=== PATIENT | female | born 1960 | race Caucasian/White ===

== ENCOUNTER 2020-04-09 01:16 | Outpatient (CLI) | payer OTHER, SELFPAY ==
[2020-04-09 09:51] LABS: Abs Immature Grans 0.01 k/cumm (0.0-0.09); Absolute Basophil Count 0.04 k/cumm (0.0-0.2); Absolute Eosinophil Count 0.11 k/cumm (0.0-0.7); Absolute Lymphocyte Count 1.63 k/cumm (1.2-3.4); Absolute Monocyte Count 0.43 k/cumm (0.11-0.7); Absolute Neutrophil Count 2.65 k/cumm (1.2-6.7); Basophils % 0.8; Eosinophils % 2.3; HCT 41.1 % (36.0-46.0); HGB 13.5 g/dL (12.0-15.5); Immature Grans % 0.2 %; Lymphocytes % 33.5; Mean Corp. HGB Concentration 32.8 g/dL (32.0-36.0); Mean Corpuscular Hemoglobin 28.3 pg (27.0-33.0); Mean Corpuscular Volume 86.2 fL (80-95); Mean Platelet Volume 10.3 fL (8.0-11.0); Monocytes % 8.8; Neutrophils % 54.4; Platelet Count 302 x1000/uL (130-400); RBC 4.77 m/cumm (4.00-5.20); RBC Distribution Width 12.5 % (11.7-14.6); White Blood Cell Count 4.87 k/cumm (4.4-10.8)
[2020-04-09 10:34] LABS: ALT 26 U/L (14-59); AST 16 U/L (15-37); Alkaline Phosphatase 71 U/L (46-116); Anion Gap 12.1 mmol/L (3-11); BUN 15 mg/dL (7-18); Bilirubin, Total 0.6 mg/dL (0.2-1.0); CO2 22.9 mmol/L (21.0-32.0); Calcium 8.8 mg/dL (8.5-10.1); Chloride 103 mmol/L (98-107); Estimated GFR 56.75 (mL/min/1.73m2); Glucose 103 mg/dL (74-106); Potassium 4.1 mmol/L (3.5-5.1); Sodium 138 mmol/L (136-145)
[2020-04-10 10:22] LABS: C3 Complement 120 mg/dL (81-157); C4 Complement 30 mg/dL (13-39)
[2020-04-10 15:02] LABS: ANA Interpretation Negative (Negative)
== END 2020-04-09 01:36 ==
PROVIDERS: PCP Student in an Organized Health Care Education/Training Program
DX: M06.4 Inflammatory polyarthropathy (principal); Z79.899 Other long term (current) drug therapy; M32.10 Systemic lupus erythematosus, organ or system involvement unspecified
CPT/HCPCS: 36415; 80053; 85025; 86038; 86160

== ENCOUNTER 2020-08-08 02:18 | Outpatient (CLI) | payer OTHER, SELFPAY ==
--- NOTE | 2020-08-08 10:22 | DI.MAMMO_ITS ---
EXAM: MG MAMMO SCREENING CLINICAL HISTORY: screening,z12.39 TECHNIQUE: Bilateral full field digital CC and MLO mammographic images were obtained with 3D tomosyn thesis and utilizing computer aided detection (CAD). COMPARISON: None. FINDINGS: Masses/Architectural Distortion: None seen. The patient is status post bilateral breast reductions. Microcalcifications: No suspicious pleomorphic-type are seen. Skin Thickening/Nipple Retraction: None. IMPRESSION: 1. No significant interval change with no specific features of malignancy noted. 2. Unless there is more urgent need, screening mammography is recommended, as per [employer] guidelines. BI-RADS Category 1 - Negative Breast Density - Category C - Heterogeneously dense The mammogram demonstrates the patient's breast tissue is dense. Dense breast tissue is very common a nd is not abnormal but dense breast tissue can make it harder to find cancer on a mammogram. Also, de nse breast tissue may increase their breast cancer risk. This information about the result of the [facility] the [facility] mogram report was provided to the patient to raise their awareness. Use this report when you speak wi th the patient about their risks for breast cancer, which includes their family history. At that time , you may recommend for more screening tests (Ultrasound or MRI) as they might be useful based on the ir risk. A negative radiographic report should not delay biopsy if a dominant or clinically suspicious mass is present. Up to ten percent of cancers are not identified on mammography. A negative report may reinforce clinical impression. Adenosis and dense breasts may obscure an underlying neoplasm. False positive reports average 6 to 10%. Patient will receive a letter notifying them of these results.
== END 2020-08-08 02:38 ==
PROVIDERS: PCP Student in an Organized Health Care Education/Training Program; Visit Provider Nurse Practitioner Women's Health
DX: Z12.31 Encounter for screening mammogram for malignant neoplasm of breast (principal)
CPT/HCPCS: 77063; 77067

== ENCOUNTER 2020-12-13 02:23 | Outpatient (CLI) | payer OTHER, SELFPAY ==
[2020-12-13 13:15] LABS: Abs Immature Grans 0.02 10^3/uL (0.0-0.06); Absolute Basophil Count 0.08 10^3/uL (0.0-0.2); Absolute Eosinophil Count 0.22 10^3/uL (0.0-0.7); Absolute Lymphocyte Count 1.55 10^3/uL (1.2-3.4); Absolute Neutrophil Count 3.73 10^3/uL (1.2-6.7); Basophils % 1.3; Eosinophils % 3.6; HCT 40.7 % (36.0-46.0); HGB 13.4 g/dL (11.2-15.7); Immature Grans % 0.3; Lymphocytes % 25.4; MCH 28.8 pg (27.0-33.0); MCHC 32.9 % (32.0-36.0); MCV 87.3 fL (80-95); MPV 10.2 fL (8.0-11.0); Monocytes % 8.2; Neutrophils % 61.2; Nucleated RBC 0 %; Platelet Count 307 10^3/uL (130-400); RBC 4.66 10^6/uL (3.93-5.22); RDW 11.8 % (11.7-14.6); RDW-SD 37.6 fL
[2020-12-13 13:58] LABS: ALT 29 U/L (14-59); AST 15 U/L (15-37); Estimated GFR 56.56 (mL/min/1.73m2)
[2020-12-16 09:44] LABS: C3 Complement 118 mg/dL (81-157); C4 Complement 28 mg/dL (13-39)
[2020-12-17 14:43] LABS: ANA Interpretation Negative (Negative)
[2020-12-17 15:08] LABS: RNP Ab, IgG 1.5 Units (<20.0); SS-A Antibody 1.2 Units (<20.0); SS-B (La) Ab, IgG 1.4 Units (<20.0); Sm (Smith) Ab, IgG 1.8 Units (<20.0)
== END 2020-12-13 02:24 | disposition home or self-care (01) ==
LOC: LBO 02:23
PROVIDERS: PCP Student in an Organized Health Care Education/Training Program; Visit Provider Internal Medicine Rheumatology
DX: Z79.899 Other long term (current) drug therapy (principal); L93.0 Discoid lupus erythematosus
CPT/HCPCS: 36415; 82565; 84450; 84460; 85025; 86038; 86160; 86235

== ENCOUNTER 2021-03-06 10:24 | Outpatient (CLI) | payer OTHER, SELFPAY ==
--- NOTE | 2021-03-06 10:15 | RT.EKG_ITS ---
APPROVED REPORT Exam: Resting ECG Reason for Exam: Long-term current use of stimulant Patient Location: O HR:71 bpm ECG Measurements Heart Rate 71 AXIS IA 157 P 11 QRSd 86 QRS 13 QT 394 T 7 QTc 428 Conclusion Sinus rhythm...normal P axis, V-rate 60- 99
== END 2021-03-06 10:25 | disposition home or self-care (01) ==
LOC: DI.KIM 10:35
PROVIDERS: PCP Student in an Organized Health Care Education/Training Program; Visit Provider Student in an Organized Health Care Education/Training Program
DX: F90.2 Attention-deficit hyperactivity disorder, combined type (principal); Z79.899 Other long term (current) drug therapy; Z51.81 Encounter for therapeutic drug level monitoring
CPT/HCPCS: 93010

== ENCOUNTER 2021-06-30 08:50 | Outpatient (REF) | payer OTHER, SELFPAY ==
--- NOTE | 2021-06-30 08:30 | PAPFT_PTH ---
PATIENT: Sherri Hernandez LOC: [facility] U#:[id number] AGE/SX: 61/F ROOM: RE06/30/[address]: KHOI Bullock : 1960 BED: DIS: 06/30/2021 SPEC #: [id number] RECD: 06/30/21 12:55 STATUS: RICKIE RETala #: [id number] JANAK: 06/30/21 08:[address]: Ursula Palomares DEPT: [facility] Cytology RECD BY: Ariadna Gallardo ENTERED: 06/30/21 12:55 SP TYPE: PAPFT OTHR DR: Amber Davidson, Tissues: 1 - CX/ENDOCX FOR PAP SMEARS Procedures: PAP THIN PREP/[facility] Screening HPV DNA PROBE Comments: [id number]
== END 2021-06-30 08:51 | disposition home or self-care (01) ==
LOC: LBN 08:50
PROVIDERS: PCP Student in an Organized Health Care Education/Training Program; Visit Provider Nurse Practitioner Family
DX: Z12.4 Encounter for screening for malignant neoplasm of cervix (principal); Z11.51 Encounter for screening for human papillomavirus (HPV)
CPT/HCPCS: 88142; 87624

== ENCOUNTER 2021-07-04 02:39 | Outpatient (CLI) | payer OTHER, SELFPAY ==
[2021-07-04 09:40] LABS: HCT 39.4 % (36.0-46.0); HGB 12.8 g/dL (11.2-15.7); MCH 28.3 pg (27.0-33.0); MCHC 32.5 % (32.0-36.0); MCV 87.2 fL (80-95); MPV 9.9 fL (8.0-11.0); Platelet Count 292 10^3/uL (130-400); RBC 4.52 10^6/uL (3.93-5.22); RDW 12.2 % (11.7-14.6); RDW-SD 39.3 fL
[2021-07-04 11:19] LABS: ALT 40 U/L (14-59); AST 13 U/L (15-37); Albumin 3.9 g/dL (3.4-5.0); Alkaline Phosphatase 74 U/L (46-116); BUN 17 mg/dL (7-18); Bilirubin, Total 0.6 mg/dL (0.2-1.0); CREATININE 0.9 mg/dL (0.55-1.02); Calcium 9.1 mg/dL (8.5-10.1); Calculated LDL 112 mg/dL (<100); Chloride 106 mmol/L (98-107); Cholesterol 214 mg/dL (<200); Glucose 95 mg/dL (74-106); HDL Cholesterol 93 mg/dL (40-60); Potassium 4.4 mmol/L (3.5-5.1); Sodium 143 mmol/L (136-145); Total Protein 6.8 g/dL (6.4-8.2); Triglyceride 45 mg/dL (<150)
== END 2021-07-04 02:40 | disposition home or self-care (01) ==
LOC: LBO 02:39
PROVIDERS: PCP Student in an Organized Health Care Education/Training Program; Visit Provider Student in an Organized Health Care Education/Training Program
DX: R03.0 Elevated blood-pressure reading, without diagnosis of hypertension; K76.9 Liver disease, unspecified; Z13.220 Encounter for screening for lipoid disorders; L93.0 Discoid lupus erythematosus; Z86.2 Personal history of diseases of the blood and blood-forming organs and certain disorders involving the immune mechanism; Z83.2 Family history of diseases of the blood and blood-forming organs and certain disorders involving the immune mechanism
CPT/HCPCS: 36415; 80053; 80061; 85027

== ENCOUNTER 2021-07-18 00:32 | Outpatient (CLI) | payer OTHER, SELFPAY ==
--- NOTE | 2021-07-18 07:15 | DI.RAD_ITS ---
Exam(s) XR CHEST 2V PA LATERAL EXAM: XR CHEST 2V PA LATERAL CLINICAL HISTORY: recent bronchitis, SOB,ASTHMA,J45.909 TECHNIQUE: 2D digital imaging was performed of the chest. Two images were obtained. PA and lateral views were obtained. COMPARISON: No exams were available for comparison FINDINGS: MEDIASTINUM: Normal. HEART: Normal. PULMONARY VASCULATURE: Normal. LUNGS: Clear. PLEURAL SPACE: No pleural effusion or pneumothorax. BONE:Within normal limits for the patient's age. OTHER FINDINGS:Normal. IMPRESSION: No acute pulmonary findings. DATA REPOSITORY: RADIATION DOSE DELIVERED:
[2021-07-18] MEDS: Albuterol HFA 18 GM 200 PUFF INH IH (09:42)
[2021-07-18] MEDS: Inhaler, Assist Device 1 EACH MC (09:43)
--- NOTE | 2021-07-22 15:37 | W.PFT ---
Date of service: 07/18/21 Time of Service: 08:09 Pulmonary Function Test Result Requesting Provider Marta Indications: Dyspnea on Exertion Interpretation Spirometry: There is no airflow limitation. There is no significant bronchodilator effect. There is inspiratory loop blunting on her prebronchodilator volume loop. Lung Volumes: Lung volumes are normal. Diffusion Capacity: Diffusion capacity is normal Airway Pressure: Airways resistance is normal. Impression Normal pulmonary function test however there is an inspiratory loop blunting on the prebronchodilator loop that could represent possible vocal cord dysfunction. Clinical Correlation therefore is recommended.
== END 2021-07-18 00:33 | disposition home or self-care (01) ==
LOC: RT 00:32
PROVIDERS: PCP Student in an Organized Health Care Education/Training Program; Visit Provider Student in an Organized Health Care Education/Training Program
DX: R06.09 Other forms of dyspnea (principal)
CPT/HCPCS: 94060; 94726; 94729; 71046

== ENCOUNTER 2021-08-11 00:31 | Outpatient (CLI) | payer OTHER, SELFPAY ==
--- NOTE | 2021-08-11 09:26 | DI.MAMMO_ITS ---
Exam(s) MAMMO SCREENING EXAM: MAMMO SCREENING CLINICAL HISTORY: screening,z12.39. TECHNIQUE: Bilateral full field digital CC and MLO mammographic images were obtained with 3D tomosyn thesis and utilizing computer aided detection (CAD). COMPARISON: Prior mammograms dating back to 2016, the most recent being July 2020. FINDINGS: Fibroglandular tissue pattern is again noted be moderately dense, this decreasing the sensitivity anabel mogram for finding hidden underlying lesions. There are no new obvious spiculated masses. Benign microcalcifications are again noted bilaterally. Posteriorly in the right breast on the MLO view there is a group of microcalcifications which has inc reased when compared to prior studies. Spot compression view recommended. There is no significant architectural distortion nor skin thickening-retraction. IMPRESSION: Dense bilateral fibroglandular tissue. No radiographic evidence of malignancy in left breast. Micro calcification group posteriorly in the right breast which require 2D spot Mag views. BI-RADS Category 0 - Assessment Incomplete: Need additional imaging evaluation Breast Density - Category C - Heterogeneously dense Breast density Category C or D implies that the patient has dense breast tissue. Dense breast tissue can make it harder to find cancer on a mammogram. Dense breast tissue is also associated with an incr eased risk of breast cancer. This information about the result of the mammogram report was provided to the patient to raise their awareness. Use this report when you speak with the patient about their risks for breast cancer, which includes their family history. At that time, you may recommend additional screening tests (Ultrasoun d or MRI) as these tests may add significant information. A negative radiographic report should not delay biopsy if a dominant or clinically suspicious mass is present. Up to ten percent of cancers are not identified on mammography. A negative report may reinforce clinical impression. Adenosis and dense breasts may obscure an underlying neoplasm. False positive reports average 6 to 10%. Patient will receive a letter notifying them of these results.
== END 2021-08-11 00:51 ==
PROVIDERS: PCP Student in an Organized Health Care Education/Training Program; Visit Provider Student in an Organized Health Care Education/Training Program
DX: Z12.31 Encounter for screening mammogram for malignant neoplasm of breast (principal); R92.8 Other abnormal and inconclusive findings on diagnostic imaging of breast
CPT/HCPCS: 77063; 77067

== ENCOUNTER 2021-08-25 00:31 | Outpatient (CLI) | payer OTHER, SELFPAY ==
--- NOTE | 2021-08-25 11:37 | DI.MAMMO_ITS ---
Exam(s) MAMMO SCREEN CALL BACK UNI EXAM: MAMMO SCREEN CALL BACK UNI CLINICAL HISTORY: INCREASED MICROCALCIFICATIONS RT BREAST, 2D SPOT MAG VIEWS. TECHNIQUE: Craniocaudal and mediolateral oblique spot magnification views of the right breast with C omputer Aided Diagnosis. COMPARISON: Priors available for comparison. FINDINGS: Mammography/Tomosynthesis: Masses/Architectural Distortion: None seen. Microcalcifictions: There is again shown a cluster of calcifications in the posterior central right b reast which have shown increase in number compared to the prior examination. No associated mass is s een. Skin Thickening/Nipple Retraction: None. IMPRESSION: 1. Interval increase in number of a cluster of calcifications in the posterior central right breast. 2. Biopsy is recommended for further evaluation. 3. The findings were discussed with the patient and the patient's primary care team on the date of examination. BI-RADS Category 4 - Suspicious Abnormality: Biopsy should be considered Breast Density - Category C - Heterogeneously dense Breast density Category C or D implies that the patient has dense breast tissue. Dense breast tissue can make it harder to find cancer on a mammogram. Dense breast tissue is also associated with an incr eased risk of breast cancer. This information about the result of the mammogram report was provided to the patient to raise their awareness. Use this report when you speak with the patient about their risks for breast cancer, which includes their family history. At that time, you may recommend additional screening tests (Ultrasoun d or MRI) as these tests may add significant information. A negative radiographic report should not delay biopsy if a dominant or clinically suspicious mass is present. Up to ten percent of cancers are not identified on mammography. A negative report may reinforce clinical impression. Adenosis and dense breasts may obscure an underlying neoplasm. False positive reports average 6 to 10%. Patient will receive a letter notifying them of these results.
== END 2021-08-25 00:51 ==
PROVIDERS: PCP Student in an Organized Health Care Education/Training Program; Visit Provider Student in an Organized Health Care Education/Training Program
DX: R92.8 Other abnormal and inconclusive findings on diagnostic imaging of breast (principal)
CPT/HCPCS: 77063; 77067

== ENCOUNTER 2021-11-11 04:26 | Outpatient (CLI) | payer OTHER, SELFPAY ==
[2021-11-11 13:29] LABS: Abs Immature Grans 0.04 10^3/uL (0.0-0.06); Absolute Eosinophil Count 0.43 10^3/uL (0.0-0.7); Absolute Lymphocyte Count 1.52 10^3/uL (1.2-3.4); Absolute Monocyte Count 0.77 10^3/uL (0.1-0.8); Absolute Neutrophil Count 5.64 10^3/uL (1.2-6.7); Basophils % 1.2; Eosinophils % 5.1; HCT 38.1 % (36.0-46.0); HGB 12.2 g/dL (11.2-15.7); Immature Grans % 0.5; Lymphocytes % 17.9; MCH 28.4 pg (27.0-33.0); MCV 88.8 fL (80-95); MPV 10.2 fL (8.0-11.0); Monocytes % 9.1; Neutrophils % 66.2; Nucleated RBC 0 %; Platelet Count 337 10^3/uL (130-400); RBC 4.29 10^6/uL (3.93-5.22); RDW 12.3 % (11.7-14.6); RDW-SD 39.9 fL
[2021-11-11 14:14] LABS: ALT 38 U/L (14-59); AST 17 U/L (15-37); Albumin 3.6 g/dL (3.4-5.0); Alkaline Phosphatase 69 U/L (46-116); Anion Gap 10.1 mmol/L (3-11); BUN 23 mg/dL (7-18); Bilirubin, Total 0.5 mg/dL (0.2-1.0); CO2 25.9 mmol/L (21.0-32.0); CREATININE 1.1 mg/dL (0.55-1.02); Chloride 102 mmol/L (98-107); Glucose 89 mg/dL (74-106); Sodium 138 mmol/L (136-145); Total Protein 6.5 g/dL (6.4-8.2)
== END 2021-11-11 04:27 | disposition home or self-care (01) ==
PROVIDERS: PCP Student in an Organized Health Care Education/Training Program; Visit Provider Internal Medicine Rheumatology
DX: Z79.899 Other long term (current) drug therapy (principal)
CPT/HCPCS: 36415; 80053; 85025

== ENCOUNTER 2021-12-03 02:38 | Outpatient (CLI) | payer OTHER, SELFPAY ==
[2021-12-03 11:20] LABS: Abs Immature Grans 0.03 10^3/uL (0.0-0.06); Absolute Eosinophil Count 0.25 10^3/uL (0.0-0.7); Absolute Lymphocyte Count 1.49 10^3/uL (1.2-3.4); Absolute Monocyte Count 0.83 10^3/uL (0.1-0.8); Absolute Neutrophil Count 4.63 10^3/uL (1.2-6.7); Basophils % 1.4; Eosinophils % 3.4; HCT 37.7 % (36.0-46.0); HGB 11.9 g/dL (11.2-15.7); Immature Grans % 0.4; Lymphocytes % 20.3; MCH 28.6 pg (27.0-33.0); MCHC 31.6 % (32.0-36.0); MCV 90.6 fL (80-95); MPV 9.9 fL (8.0-11.0); Monocytes % 11.3; Neutrophils % 63.2; Nucleated RBC 0 %; Platelet Count 298 10^3/uL (130-400); RBC 4.16 10^6/uL (3.93-5.22); RDW 12.7 % (11.7-14.6); RDW-SD 41.7 fL; WBC 7.33 10^3/uL (4.4-10.8)
[2021-12-03 11:48] LABS: ALT 36 U/L (14-59); AST 21 U/L (15-37); Albumin 3.5 g/dL (3.4-5.0); Alkaline Phosphatase 68 U/L (46-116); Anion Gap 7.7 mmol/L (3-11); BUN 22 mg/dL (7-18); Bilirubin, Total 0.7 mg/dL (0.2-1.0); CO2 27.3 mmol/L (21.0-32.0); Chloride 104 mmol/L (98-107); Estimated GFR 56.37 (mL/min/1.73m2); Glucose 95 mg/dL (74-106); Potassium 4.2 mmol/L (3.5-5.1); Sodium 139 mmol/L (136-145); Total Protein 6.9 g/dL (6.4-8.2)
== END 2021-12-03 02:39 | disposition home or self-care (01) ==
LOC: LBO 02:38
PROVIDERS: PCP Student in an Organized Health Care Education/Training Program; Visit Provider Physician Assistant
DX: Z79.899 Other long term (current) drug therapy (principal)
CPT/HCPCS: 80053; 85025

== ENCOUNTER 2022-01-28 02:45 | Outpatient (CLI) | payer OTHER, SELFPAY ==
[2022-01-28 14:51] LABS: Abs Immature Grans 0.05 10^3/uL (0.0-0.06); Absolute Basophil Count 0.05 10^3/uL (0.0-0.2); Absolute Eosinophil Count 0.11 10^3/uL (0.0-0.7); Absolute Lymphocyte Count 1.68 10^3/uL (1.2-3.4); Basophils % 0.6; Eosinophils % 1.4; HCT 32.2 % (36.0-46.0); HGB 10.2 g/dL (11.2-15.7); Immature Grans % 0.6; Lymphocytes % 21.6; MCH 30.9 pg (27.0-33.0); MCHC 31.7 % (32.0-36.0); MCV 97.6 fL (80-95); MPV 9.5 fL (8.0-11.0); Neutrophils % 66.8; Nucleated RBC 0 %; Platelet Count 289 10^3/uL (130-400); RDW 14.5 % (11.7-14.6); RDW-SD 51.8 fL; WBC 7.79 10^3/uL (4.4-10.8)
[2022-01-28 16:06] LABS: ALT 52 U/L (14-59); AST 25 U/L (15-37); Albumin 3.8 g/dL (3.4-5.0); Alkaline Phosphatase 69 U/L (46-116); Anion Gap 8.8 mmol/L (3-11); BUN 20 mg/dL (7-18); Bilirubin, Total 0.8 mg/dL (0.2-1.0); CO2 26.2 mmol/L (21.0-32.0); Calcium 8.7 mg/dL (8.5-10.1); Chloride 103 mmol/L (98-107); Estimated GFR 56.37 (mL/min/1.73m2); Glucose 89 mg/dL (74-106); Potassium 4.2 mmol/L (3.5-5.1); Sodium 138 mmol/L (136-145); Total Protein 6.5 g/dL (6.4-8.2)
== END 2022-01-28 02:46 | disposition home or self-care (01) ==
LOC: LBO 02:46
PROVIDERS: PCP Student in an Organized Health Care Education/Training Program; Visit Provider Physician Assistant
DX: L93.0 Discoid lupus erythematosus (principal); Z51.81 Encounter for therapeutic drug level monitoring
CPT/HCPCS: 36415; 80053; 85025

== ENCOUNTER 2022-09-17 08:55 | Day surgery (SDC) | payer OTHER, SELFPAY ==
--- NOTE | 2022-09-16 17:25 | W.PM.DSUDISC ---
Date of service: 09/17/22 Time of Service: 11:19 Discharge Plan Disposition Patient Disposition: HOME Condition: Good Discharge Details Reason For Visit: screening colonoscopy Attending Provider: Gareth Lal Primary Care Provider: Amber Davidson Home Meds and New Rx's Prescriptions: Continued albuterol sulfate 90 mcg/actuation HFA aerosol inhaler 2 puff inhalation Q6H PRN (Reason: shortness of breath or wheezing) Qty: 8.5 8RF Dulera 200-5 mcg/actuation HFA aerosol inhaler 2 puff inhalation BID 90 Days Qty: 13 8RF dextroamphetamine-amphetamine [Adderall XR] 5 mg capsule,extended release 24hr 5 mg PO DAILY MDD 5mg Qty: 28 0RF fish oil 2,000 mg PO DAILY diclofenac sodium 1 % gel 4 gm TP QID PRN cholecalciferol (vitamin D3) [Vitamin D3] 50 mcg (2,000 unit) tablet 2,000 unit PO DAILY vitamin B complex [B Complex-Vitamin B12] Tablet 1 tab PO DAILY cetirizine [Zyrtec] 10 mg tablet 10 mg PO DAILY PRN fexofenadine [Aurora Allergy] 60 mg tablet 60 mg PO DAILY Benefiber Clear SF (dextrin) 3 gram/3.5 gram powder in packet 1 packet PO DAILY Rx Instructions: mix into at least 4 oz water or juice before administering meloxicam 15 mg tablet 15 mg PO DAILY clobetasol 0.05 % solution 1 applic topical BID hydroxychloroquine 200 mg tablet 200 mg PO BID Label Comments: per Rheum, [facility] [place] as reported by [facility] pantoprazole 20 mg tablet,delayed release (DR/EC) 20 mg PO BID Qty: 180 3RF citalopram 40 mg tablet 40 mg PO DAILY Qty: 90 3RF montelukast [Singulair] 10 mg tablet 10 mg PO DAILY Qty: 90 3RF Discharge Instructions Additional Instructions: 1. If tolerated, consume a soft, low fiber diet for 1-2 days. 2[address] Do not drive, drink alcohol, operate machinery, make critical decisions, or do activities that require coordination or balance for 24 hours. 3. Because air was put into your colon during the procedure, expelling air from your rectum (passing gas or farting) is normal. 4. You may not have a bowel movement for 1-3 days because of the colonoscopy prep. This is normal. 5. Go directly to the emergency room if you notice any of the following: Develop chills (warm to touch), or if you have a thermometer and your temperature is above 101 Difficulty breathing or difficultly swallowing Persistent vomiting Severe abdominal pain, other than gas cramps Severe chest pain Black, tarry stools Any bleeding ? exceeding one tablespoon 6. Call your physician if the site where your intravenous was started becomes red, swollen, painful, and warm to touch. 7. Your physician has reviewed your pre-procedure medications. Please continue to take those medications as previously ordered. You will be given specific information/education regarding any changes to your medications before leaving. Activity:: Activity as Tolerated Diet:: As Tolerated DS: Diagnosis Discharge Diagnosis (1) Screening for colon cancer: Status: Acute Asessment and Plan: This was a technically incomplete colonoscopy. I did have good visualization of the overwhelming majority of the colon, but I cannot say with 100% certainty that the cecum was negative for polyps. I recommend repeating colonoscopy in 5 years.
--- NOTE | 2022-09-16 17:26 | COLE_ITS ---
Date of service: 09/17/22 Time of Service: 11:21 Colonoscopy Report Date of procedure: 09/17/22 Pre-op diagnosis general: Screening colonoscopy for routine health maintenance Post-op diagnosis procedure note: other (Incomplete colonoscopy) Procedure: Incomplete screening colonoscopy Surgeon: Gareth Lal Anesthesia Type: General:No Airway Estimated blood loss (mL): 0 Pathology: none sent Complications: None Disposition: same day Indications: Aziza is a 62-year-old woman. She underwent a colonoscopy in the past. That was for screening. As she understands, she may have had hyperplastic polyps, and she is following up today for her next screening test. Prep: Miralax/Dulcolax Procedure Start Time: 10:41 Procedure End Time: 11:14 Retraction Time: 12 Findings: Normal colonoscopy with the exception of the cecum which was not completely cannulated Procedure Description: After the induction of monitored anesthetic care, and with the patient in left lateral decubitus position, I began by performing an external anorectal exam.? Perineum and skin were normal, as was the anal verge.? There was no evidence of external hemorrhoids.? Next, I performed a digital rectal exam.? I did not appreciate any abnormal findings.? Next, I advanced a colonoscope into the rectal vault.? I performed retroflexion.? This was normal.? Using insufflation, I then advanced the colonoscope beyond the rectal folds and into the sigmoid colon before advancing towards the cecum.? The quality of the prep was excellent.? The colon was quite redundant and tortuous with numerous turns. I was able to clearly visualize the hepatic flexure, and traverse this. I advanced the scope into the ascending colon, and could visualize the cecum and the distance. Despite repositioning the patient several times, manipulating the variable stiffness of the scope, and multiple attempts at manual advancement of the scope across the abdominal wall, I was not able to completely cannulate the cecum. I did not see any concerning signs of large luminal masses, however it is possible that subcentimeter polyps were not appreciated. I then began withdrawing the colonoscope using repeated irrigation as necessary for full evaluation of the colonic mucosa. ?Once the scope was withdrawn to the level of the rectum, great care was taken to examine portions of the rectal folds.? Finally, the scope was withdrawn and the patient was brought [facility] recovery unit as the anesthetic wore off. ?The findings and instructions were shared with the patient prior to discharge. Based on the incomplete nature of the colonoscopy, I do recommend repeating a colonoscopy in 3 to 5 years. Alternatively, I suppose there could be a role for Cologuard testing here in an effort to extend the screening duration.
[2022-09-17 09:53] VITALS: BP 139/77; PULSE 95; RESP 18; TEMP 36.6; O2SAT 98
--- NOTE | 2022-09-17 10:14 | ANES.PREOP_ITS ---
General Info Date of Service Date Performed: 09/17/22 Height: 5 ft 7 in Weight: 96.4 kg Body Mass Index (BMI): 33.3 Surgical Procedure: Operation Date: 09/17/22 10:35 Proposed Procedure Side Surgeon obdulia Lal MD Meds Allergies and Home Medications Allergies Allergy/AdvReac Type Severity Reaction Status Date / Time dapsone Allergy Intermediate edema, rash Verified 09/16/22 10:52 airborne allergies Allergy Unknown unknown Uncoded 09/16/22 10:52 Home Medication Medication Instructions Recorded diclofenac sodium 1 % topical gel 4 gm topical QID PRN 03/28/20 fish oil 2,000 mg PO DAILY 03/28/20 cholecalciferol (vitamin D3) 50 2,000 unit PO DAILY 03/29/20 mcg (2,000 unit) tablet (Vitamin D3) vitamin B complex (B 1 tab PO DAILY 03/29/20 Complex-Vitamin B12 tablet) meloxicam 15 mg tablet 15 mg PO DAILY arthralgias 01/29/21 clobetasol 0.05 % scalp solution 1 applic topical BID 02/27/21 albuterol sulfate 90 mcg/actuation 2 puff inhalation Q6H PRN 07/14/21 aerosol inhaler shortness of breath or wheezing #8.5 grams mometasone-formoterol HFA 200 2 puff inhalation BID 90 days #13 10/14/21 mcg-5 mcg/actuation aerosol grams inhaler (Dulera) hydroxychloroquine 200 mg tablet 200 mg PO BID 01/21/22 cetirizine 10 mg tablet (Zyrtec) 10 mg PO DAILY PRN 04/14/22 fexofenadine 60 mg tablet (Aurora 60 mg PO DAILY 04/14/22 Allergy) pantoprazole 20 mg tablet,delayed 20 mg PO BID #180 tabs 06/09/22 release citalopram 40 mg tablet 40 mg PO DAILY #90 tabs 06/11/22 montelukast 10 mg tablet 10 mg PO DAILY #90 tabs 08/28/22 (Singulair) dextroamphetamine-amphetamine ER 5 5 mg PO DAILY #28 caps 09/01/22 mg 24hr capsule,extend release (Adderall XR) wheat dextrin 3 gram/3.5 gram oral 1 packet PO DAILY 09/02/22 powder packet (Benefiber Clear Sugar Free(dextrin)) Current Visit Medications: Current Medications Generic Name Dose Route Start Last Admin Trade Name Freq PRN Reason Stop Dose Admin Hyoscyamine Sulfate 0.125 mg 09/16/22 17:26 Hyoscyamine 0.125 Mg Sl/Oral/Chew SL DIRECTED PRN Ringer's Solution 1,000 mls @ 80 mls/hr 09/17/22 06:00 IV 10/16/22 23:59 INFUSION DEVON IV Miscellaneous Supplies 1 each 09/17/22 06:00 Iv Access IV 10/16/22 23:59 DIRECTED DEVON Sodium Chloride 0 ml 09/17/22 06:00 Normal Saline Flush 10 Ml Syr IV 10/16/22 23:59 PRN PRN Sodium Chloride 0 ml 09/17/22 06:00 Normal Saline 10 Ml Vial IJ 10/16/22 23:59 DIRECTED PRN Sterile Water 0 ml 09/17/22 06:00 Water,Injection,Sterile 10 Ml Vial IJ 10/16/22 23:59 DIRECTED PRN PFSH Active Problems Active Problems: Problem Status Onset Code Migraines G43.909 Anxiety F41.9 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 Vitamin D deficiency E55.9 History of airborne allergies Z91.09 Family history of factor V Leiden mutation Z83.2 Major depressive disorder, recurrent F33.9 ADHD (attention deficit hyperactivity disorder), combined type F90.2 Vaginal atrophy N95.2 Glaucoma suspect of both eyes H40.003 Astigmatism of both eyes with presbyopia H52.203, H52.4 Complicated grieving F43.21 Asthma J45.909 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, 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.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 GERD (gastroesophageal reflux disease) K21.9 Calcification of right breast on mammography R92.1 Fibroadenoma of right breast D24.1 Vocal cord dysfunction J38.3 Shortness of breath R06.02 Asymptomatic spider vein I78.1 Normal hearing exam Z01.10 Arthralgia of elbow, right M25.521 Chronic arthralgias of knees and hips M25.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 Cough Endometriosis 1993 Lattice degeneration of left retina 02/26/21-[facility] [place] Ophthalmology. PONV (postoperative nausea and vomiting) Pt reports up to early 30s, severe PONV; has decreased since menopause; son also has PONV Posterior vitreous detachment of left eye 02/26/21[place] [place] Ophthal[place]. Medical History Comments:: up to early 30s, severe PONV; has decreased since menopause; son also has PONV Surgical History Surgical History Carpal tunnel syndrome on both sides 2004, 2005 H/O section 1998, 2018 History of removal of ovarian cyst 1991 Hx of breast reduction, elective 2009 [place] Hx of LASIK 02/26/21[place] [place] Op[place]. Hx of tonsillectomy 1967 Tobacco Smoking/Tobacco Use Status: Never Alcohol Alcohol Intake: current Alcohol intake frequency: a few times a month Alcohol type: wine and hard liquor Substance Use Substance use: Never Substance use type: does not use Prental History History 2 Para 2 Hx # Term Pregnancies Multiple births Hx # Pregnancies Ectopic pregnancies AB induced Hx Number of Living Children AB spontaneous Vital Signs and Lab Results Vital Signs Most Recent Vital Signs in EMR: Most Recent Vital Signs Temp Pulse Resp BP Pulse Ox 36.6 C 95 H 18 139/77 98 09/17/22 09:53 09/17/22 09:53 09/17/22 09:53 09/17/22 09:53 09/17/22 09:53 Lab Results Blood Type / Crossmatch: No Data to Display Complete Blood Count: No Data to Display Complete Metabolic Panel: No Data to Display Liver Function Panel: No Data to Display Coagulation Panel: No Data to Display Cardiac Panel: No Data to Display Arterial Blood Gas: No Data to Display Venous Blood Gas: No Data to Display Pancreas Panel: No Data to Display Thyroid Panel: No Data to Display Infectious Disease: No Data to Display Blood Cultures: No Data to Display Toxicology Panel: No Data to Display Imaging and Studies Imaging and Studies Study information below may be from another EMR and interpreted by another provider. Please see original notes in EMR for more complete details. EKG Summary: ATE/TIME OF SERVICE: 03/06/21 1052 : 1960PERFORMING LOCATION: [facility] APPROVED REPORT Exam: Resting ECG Reason for Exam: Long-term current use of stimulant Patient Location: O HR:71 bpm ECG Measurements Heart Rate 71 AXIS IN 157 P 11 QRSd 86 QRS 13 QT 394 T7 QTc 428 Conclusion Sinus rhythm...normal P axis, V-rate 60- 99 Echocardiogram Summary: Admission Date: 11/18/21 : 1960 Age: 61 APPROVED REPORT EXAM: Comprehensive 2D, Doppler, and color-flow Echocardiogram Patient Location: Out-Patient Cattle Examiner: Lidia Cook RDCS (AE) Indications: Lower extremity edema, SOB, Orthopnea Other Information Study Quality: Adequate Conclusion Normal left ventricular wall thickness and chamber size. Estimated ejection fraction is 58%. Wall motion is normal Normal right ventricular size and systolic function The atria are normal in size No structural or hemodynamically significant valvular disease Estimated right ventricular systolic pressure 22 mmHg Wall motion Pulmonary Function Summary: Date of service: 07/18/21 Time of Service: 08:09 Pulmonary Function Test Result Requesting Provider Marta Indications: Dyspnea on Exertion Interpretation Spirometry: There is no airflow limitation. There is no significant bronchodilator effect. There is inspiratory loop blunting on her prebronchodilator volume loop. Lung Volumes: Lung volumes are normal. Diffusion Capacity: Diffusion capacity is normal Airway Pressure: Airways resistance is normal. Impression Normal pulmonary function test however there is an inspiratory loop blunting on the prebronchodilator loop that could represent possible vocal cord dysfunction. Clinical Correlation therefore is recommended. Anesthesia Assessment and Plan Anesthesia History Personal History: No History of Anesthesia Complications, PONV and Other Family History: Other Exercise Tolerance Exercise Tolerance: Metabolic Equivalents>4 Pertinent Negatives Pertinent Negatives: No Symptoms of GERD and No Major Cardiovascular Symptoms or Complaints Cardiac & Pulmonary Exam Cardiac Exam: Normal S1/S2 Heart Sounds Pulmonary Exam: Clear Bilateral Breath Sounds Implantable Cardiac Device Does patient have a Pacemaker or an ICD?: No Airway Exam Known Difficult Airway: No Mallampati Class: 1 Mouth Opening: Normal (> 3cm) Thyromental Distance: Greater than 3 cm Neck Range of Motion: Full ROM Neck Circumference: Normal Teeth Condition: Normal Dentition ASA Classification ASA Score: ASA 2 Emergency Case?: No NPO Status NPO Status: NPO Clears >2 hours, Solids >8 hours Anesthesia Plan Resuscitation Status: Full Code Anesthesia Technique: General Anesthesia Airway Planned: Natural Airway Monitors Used: Standard Monitors
[2022-09-17 10:23] VITALS: BMI 33.3
[2022-09-17] MEDS: Lactated Ringers 1,000 ML 80 ML IV (10:36)
[2022-09-17 11:15] VITALS: BP 112/50; PULSE 83; RESP 18; TEMP 36.7; O2SAT 96
[2022-09-17 11:44] VITALS: BP 120/71; PULSE 80; RESP 18; TEMP 36.5; O2SAT 98
--- NOTE | 2022-09-18 16:54 | W.ANESPOSTOP ---
Postoperative Evaluation Date, Time and Location Date Performed: 09/18/22 Time Performed: 16:54 Patient Location: Day Surgery Unit Vital Signs Most Recent Imported Vital Signs: Most Recent Vital Signs Temp Pulse Resp BP Pulse Ox 36.5 C 80 18 120/71 98 09/17/22 11:44 09/17/22 11:44 09/17/22 11:44 09/17/22 11:44 09/17/22 11:44 Pain Score Most Recent Pain Score: Most Recent Pain Score Pain Level 0 09/17/22 11:44 Assessment Mental Status: Awake (Alert & Oriented to Patient Baseline) Airway and Respiratory Function: Patent airway with normal (patient baseline) respiratory exam Cardiovascular Function: Hemodynamically Stable Hydration Status: Adequately Hydrated Nausea & Vomiting: No Nausea or Vomiting Pain: Pt. Denies Any Pain Peripheral Nerve Block: Patient did not receive a nerve block Postoperative Comments:: Seen the other day and was doing well
== END 2022-09-17 11:53 | disposition home or self-care (01) ==
PROVIDERS: PCP Student in an Organized Health Care Education/Training Program; Visit Provider Surgery
PROC: 0DJD8ZZ Inspection of Lower Intestinal Tract, Via Natural or Artificial Opening Endoscopic (ICD-10-PCS; CPT 45378; principal; 2022-09-17 10:30)
DX: Z12.11 Encounter for screening for malignant neoplasm of colon (principal); Q43.8 Other specified congenital malformations of intestine; Z86.010 Personal history of colon polyps
CPT/HCPCS: 45378

== ENCOUNTER → 2022-09-22 02:25 | Outpatient (CLI) | payer OTHER, SELFPAY ==
--- NOTE | 2022-09-22 06:45 | DI.MAMMO_ITS ---
Exam(s) MAMMO SCREENING EXAM: MAMMO SCREENING CLINICAL HISTORY: screening,z12.39 TECHNIQUE: Bilateral full field digital CC and MLO mammographic images were obtained with 3D tomosyn thesis and utilizing computer aided detection (CAD). COMPARISON: Available for comparison. FINDINGS: Masses/Architectural Distortion: None seen. The patient is status post bilateral breast reduction. Microcalcifications: No suspicious pleomorphic-type are seen. There are stable calcifications in both breasts. Skin Thickening/Nipple Retraction: None. IMPRESSION: 1. No significant interval change with no specific features of malignancy noted. 2. Unless there is more urgent need, screening mammography is recommended, as per [employer] guidelines. BI-RADS Category 2 - Benign Findings Breast Density - Category C - Heterogeneously dense Breast density category C or D implies that the patient has dense breast tissue. Dense breast tissue is very common and is not abnormal but dense breast tissue can make it harder to find cancer on a ma mmogram. Also, dense breast tissue may increase their breast cancer risk. This information about the result of the mammogram report was provided to the patient to raise their awareness. Use this report when you speak with the patient about their risks for breast cancer, which includes their family hist ory. At that time, you may recommend for more screening tests (Ultrasound or MRI) as they might be us eful based on their risk. A negative radiographic report should not delay biopsy if a dominant or clinically suspicious mass is present. Up to ten percent of cancers are not identified on mammography. A negative report may reinforce clinical impression. Adenosis and dense breasts may obscure an underlying neoplasm. False positive reports average 6 to 10%. Patient will receive a letter notifying them of these results.
== END ==
PROVIDERS: PCP Student in an Organized Health Care Education/Training Program; Visit Provider Student in an Organized Health Care Education/Training Program
DX: Z12.31 Encounter for screening mammogram for malignant neoplasm of breast (principal); R92.8 Other abnormal and inconclusive findings on diagnostic imaging of breast
CPT/HCPCS: 77063; 77067

== ENCOUNTER 2022-09-30 15:47 | Outpatient (CLI) | payer OTHER, SELFPAY ==
[2022-09-30 15:56] LABS: Source Nasal/Nares
[2022-09-30 16:31] LABS: COVID-19 PCR Negative (Negative)
== END 2022-09-30 15:48 | disposition home or self-care (01) ==
LOC: LBN 15:49
PROVIDERS: PCP Student in an Organized Health Care Education/Training Program; Visit Provider Student in an Organized Health Care Education/Training Program
DX: Z20.822 Contact with and (suspected) exposure to COVID-19 (principal)
CPT/HCPCS: 87635

== ENCOUNTER 2022-10-23 00:09 | Outpatient (CLI) | payer OTHER, SELFPAY ==
--- NOTE | 2022-10-23 07:30 | DI.DEXA_ITS ---
Exam(s) XR DEXA BONE DENSITY W/WO GINNA EXAM: XR DEXA BONE DENSITY W/WO GINNA CLINICAL HISTORY: evaluate bone density,at risk for osteoporosis,z91.89 TECHNIQUE: [employer] Horizon C densitometer analysis of left hip, lumbar spine and left forearm. COMPARISON: No exams were available for comparison FINDINGS: Lateral view of the thoracic and lumbar spine shows no evidence of compression fractures. Bone mineral density measurements of the lumbar spine correspond to a total T-score of -1.4, in the osteopenic range. Bone mineral density measurements of the left hip correspond to a total T-score of -1.2. The femora l neck T-score is -1.6, in the osteopenic range.. The left forearm bone mineral density measurements correspond to a T-score of the distal 3rd of -0.2, in the normal range. . IMPRESSION: Osteopenia of the lumbar spine and left hip. Normal bone mineral density of the left forearm.
== END 2022-10-23 00:29 ==
LOC: DI 00:09
PROVIDERS: PCP Student in an Organized Health Care Education/Training Program; Visit Provider Student in an Organized Health Care Education/Training Program
DX: M85.88 Other specified disorders of bone density and structure, other site (principal)
CPT/HCPCS: 77080

== ENCOUNTER 2022-11-13 13:23 | Outpatient (CLI) | payer OTHER, SELFPAY ==
--- NOTE | 2022-11-13 12:45 | DI.RAD_ITS ---
Exam(s) XR CHEST 2V PA LATERAL EXAM: XR CHEST 2V PA LATERAL CLINICAL HISTORY: URI >6 weeks, J06.9 TECHNIQUE: 2D digital imaging was performed of the chest. Two images were obtained. PA and lateral views were obtained. COMPARISON: CR XR CHEST 2V PA LATERAL from 07/18/2021 FINDINGS: MEDIASTINUM: Normal. HEART: Normal. PULMONARY VASCULATURE: Normal. LUNGS: Clear. PLEURAL SPACE: No pleural effusion or pneumothorax. BONE:Within normal limits for the patient's age. OTHER FINDINGS:Normal. IMPRESSION: No acute pulmonary findings. DATA REPOSITORY: RADIATION DOSE DELIVERED:
== END 2022-11-13 13:43 ==
LOC: DI 13:24
PROVIDERS: PCP Student in an Organized Health Care Education/Training Program; Visit Provider Physician Assistant Surgical
DX: J06.9 Acute upper respiratory infection, unspecified (principal)
CPT/HCPCS: 71046

== ENCOUNTER 2022-11-24 04:29 | Outpatient (CLI) | payer OTHER, SELFPAY ==
[2022-11-24 15:33] LABS: Abs Immature Grans 0.06 10^3/uL (0.0-0.06); Absolute Basophil Count 0.09 10^3/uL (0.0-0.2); Absolute Eosinophil Count 0.42 10^3/uL (0.0-0.7); Absolute Lymphocyte Count 2.78 10^3/uL (1.2-3.4); Absolute Monocyte Count 1.08 10^3/uL (0.1-0.8); Basophils % 0.7; Eosinophils % 3.2; HCT 40.3 % (36.0-46.0); HGB 13.1 g/dL (11.2-15.7); Immature Grans % 0.5; Lymphocytes % 21.3; MCH 29.2 pg (27.0-33.0); MCHC 32.5 % (32.0-36.0); MCV 90 fL (80-95); MPV 9.7 fL (8.0-11.0); Monocytes % 8.3; Platelet Count 336 10^3/uL (130-400); RBC 4.48 10^6/uL (3.93-5.22); RDW 13.2 % (11.7-14.6); RDW-SD 43.8 fL; WBC 13.03 10^3/uL (4.4-10.8)
[2022-11-24 16:25] LABS: ALT 37 U/L (14-59); AST 15 U/L (15-37); Albumin 3.7 g/dL (3.4-5.0); Alkaline Phosphatase 74 U/L (46-116); Anion Gap 10.4 mmol/L (3-11); BUN 21 mg/dL (7-18); Bilirubin, Total 0.4 mg/dL (0.2-1.0); CO2 26.6 mmol/L (21.0-32.0); CREATININE 1.1 mg/dL (0.55-1.02); Calcium 9.2 mg/dL (8.5-10.1); Chloride 102 mmol/L (98-107); Estimated GFR 56.81 (mL/min/1.73m2); Ferritin 36 ng/mL (8-252); Glucose 101 mg/dL (74-106); Potassium 4.1 mmol/L (3.5-5.1); Sodium 139 mmol/L (136-145); Total Protein 6.6 g/dL (6.4-8.2)
[2022-11-24 16:38] LABS: Iron 48 ug/dL (50-170); Total Iron Binding Capacity 323 ug/dL (250-450); Transferrin Sat 15 % (15-50)
[2022-11-24 17:02] LABS: Vitamin D 25 Total 32.5 ng/mL (30-100)
== END 2022-11-24 04:30 | disposition home or self-care (01) ==
LOC: LBO 04:29
PROVIDERS: PCP Student in an Organized Health Care Education/Training Program; Visit Provider Student in an Organized Health Care Education/Training Program
DX: D64.9 Anemia, unspecified (principal); E55.9 Vitamin D deficiency, unspecified; R23.8 Other skin changes; D89.89 Other specified disorders involving the immune mechanism, not elsewhere classified; N28.89 Other specified disorders of kidney and ureter; M81.0 Age-related osteoporosis without current pathological fracture; L93.0 Discoid lupus erythematosus
CPT/HCPCS: 36415; 80053; 82306; 82728; 83540; 83550; 85025

== ENCOUNTER 2023-04-09 08:37 | Outpatient (CLI) | payer OTHER, SELFPAY ==
--- NOTE | 2023-04-09 08:30 | RT.EKG_ITS ---
APPROVED REPORT Exam: Resting ECG Reason for Exam: stimulant therapy Patient Location: O HR:85 bpm ECG Measurements Heart Rate 85 AXIS AR 170 P 36 QRSd 88 QRS 6 QT 387 T 21 QTc 461 Conclusion Sinus rhythm...normal P axis, V-rate 50- 99 Borderline T abnormalities, anterior leads...T flat or neg, V2-V4
== END 2023-04-09 08:38 | disposition home or self-care (01) ==
LOC: DI.KIM 08:41
PROVIDERS: PCP Student in an Organized Health Care Education/Training Program; Visit Provider Student in an Organized Health Care Education/Training Program
DX: Z51.81 Encounter for therapeutic drug level monitoring (principal)
CPT/HCPCS: 93010

== ENCOUNTER 2023-04-13 12:13 | Outpatient (REF) | payer OTHER, SELFPAY ==
[2023-04-14 09:04] LABS: IgE 528 IU/mL (<158)
[2023-04-15 15:42] LABS: Aspergillus Fumigatus IgE <0.10 kU/L (<0.70); Bermuda Grass IgE <0.10 kU/L (<0.70); Cat Epithelium IgE <0.10 kU/L (<0.70); Cedar, IgE <0.10 kU/L (<0.70); Chicken Feathers IgE <0.10 kU/L (<0.70); Cockroach IgE <0.10 kU/L (<0.70); D Farinae IgE <0.10 kU/L (<0.70); D Pteronyssinus IgE <0.10 kU/L (<0.70); Dog Dander IgE <0.10 kU/L (<0.70); Goldenrod IgE <0.10 kU/L (<0.70); House Dust/Greer Lab, IgE <0.10 kU/L (<0.70); Short Ragweed IgE <0.10 kU/L (<0.70); Spruce, IgE <0.10 kU/L (<0.70); White Pine, IgE <0.10 kU/L (<0.70)
== END 2023-04-13 12:14 | disposition home or self-care (01) ==
LOC: LBN 12:13
PROVIDERS: Student in an Organized Health Care Education/Training Program; PCP Student in an Organized Health Care Education/Training Program; Visit Provider Student in an Organized Health Care Education/Training Program
DX: T78.40XA Allergy, unspecified, initial encounter (principal)
CPT/HCPCS: 86003; 82785; 84307

== ENCOUNTER → 2023-07-20 00:42 | Outpatient (CLI) | payer OTHER, SELFPAY ==
--- NOTE | 2023-07-20 08:31 | DI.MAMMO_ITS ---
Exam(s) MAMMO SCREENING EXAM: MAMMO SCREENING CLINICAL HISTORY: screening,Z12.39 TECHNIQUE: Mammograms were interpreted according to the usual protocol including computer analysis w [employer] CAD system, tomosynthesis and C-view imaging. COMPARISON: 2016 through 2021 FINDINGS: The breasts are composed of heterogeneously dense fibroglandular densities, Breast Density category C . No suspicious masses or suspicious microcalcifications are seen. Benign calcifications are again not ed bilaterally. No skin thickening or abnormal axillary lymph nodes are seen. There has been no significant change from prior exams. IMPRESSION: BI-RADS Cat 2 - Benign Findings Yearly screening mammography is recommended. Breast Density Category C, heterogeneously Dense. The mammogram demonstrates the patient's breast tissue is dense. Dense breast tissue is very common a nd is not abnormal but dense breast tissue can make it harder to find cancer on a mammogram. Also, de nse breast tissue may increase breast cancer risk. This information about the result of the mammogram report was provided to the patient to raise their awareness. Use this report when you speak with the patient about their risks for breast cancer, which includes their family history. At that time, you may recommend additional screening tests (Ultrasound or MRI) as they might be useful based on their r isk. A negative radiographic report should not delay biopsy if a dominant or clinically suspicious mass is present. Up to ten percent of cancers are not identified on mammography. A negative report may reinforce clinical impression. Adenosis and dense breasts may obscure an underlying neoplasm. False positive reports average 6 to 10%.
== END ==
PROVIDERS: PCP Student in an Organized Health Care Education/Training Program; Visit Provider Nurse Practitioner Family
DX: Z12.31 Encounter for screening mammogram for malignant neoplasm of breast (principal)
CPT/HCPCS: 77063; 77067

== ENCOUNTER 2024-03-31 02:48 | Outpatient (CLI) | payer BC, SELFPAY ==
[2024-03-31 09:24] LABS: Abs Immature Grans 0.02 10^3/uL (0.0-0.06); Absolute Basophil Count 0.09 10^3/uL (0.0-0.2); Absolute Eosinophil Count 0.24 10^3/uL (0.0-0.7); Absolute Lymphocyte Count 1.68 10^3/uL (1.2-3.4); Absolute Monocyte Count 0.44 10^3/uL (0.1-0.8); Absolute Neutrophil Count 3.17 10^3/uL (1.2-6.7); Basophils % 1.6 %; Eosinophils % 4.3 %; HCT 39.3 % (36.0-46.0); HGB 13.4 g/dL (11.2-15.7); Immature Grans % 0.4 %; Lymphocytes % 29.8 %; MCHC 34.1 % (32.0-36.0); MCV 88 fL (80-95); MPV 9.8 fL (8.0-11.0); Monocytes % 7.8 %; Neutrophils % 56.1 %; Platelet Count 312 10^3/uL (130-400); RBC 4.47 10^6/uL (3.93-5.22); WBC 5.64 10^3/uL (4.4-10.8)
[2024-03-31 10:23] LABS: ALT 35 U/L (14-59); AST 15 U/L (15-37); Albumin 3.4 g/dL (3.4-5.0); Alkaline Phosphatase 73 U/L (46-116); BUN 19 mg/dL (7-18); Bilirubin, Total 0.5 mg/dL (0.2-1.0); CREATININE 0.9 mg/dL (0.55-1.02); Calcium 9.5 mg/dL (8.5-10.1); Chloride 104 mmol/L (98-107); Estimated GFR 71.83 (mL/min/1.73m2); Glucose 111 mg/dL (74-106); Potassium 3.8 mmol/L (3.5-5.1); Sodium 141 mmol/L (136-145); Total Protein 6.7 g/dL (6.4-8.2)
== END 2024-03-31 02:49 | disposition home or self-care (01) ==
PROVIDERS: PCP Student in an Organized Health Care Education/Training Program; Visit Provider Nurse Practitioner Family
DX: L93.0 Discoid lupus erythematosus (principal); Z79.899 Other long term (current) drug therapy
CPT/HCPCS: 36415; 80053; 85025

== ENCOUNTER 2024-05-05 01:16 | Outpatient (CLI) | payer BC, SELFPAY ==
[2024-05-05 09:07] LABS: Abs Immature Grans 0.01 10^3/uL (0.0-0.06); Absolute Basophil Count 0.06 10^3/uL (0.0-0.2); Absolute Eosinophil Count 0.21 10^3/uL (0.0-0.7); Absolute Lymphocyte Count 1.28 10^3/uL (1.2-3.4); Absolute Monocyte Count 0.48 10^3/uL (0.1-0.8); Absolute Neutrophil Count 3.01 10^3/uL (1.2-6.7); Basophils % 1.2 %; Eosinophils % 4.2 %; HCT 38.2 % (36.0-46.0); HGB 12.7 g/dL (11.2-15.7); Immature Grans % 0.2 %; Lymphocytes % 25.3 %; MCH 29.7 pg (27.0-33.0); MCHC 33.2 % (32.0-36.0); MCV 90 fL (80-95); MPV 9.4 fL (8.0-11.0); Monocytes % 9.5 %; Neutrophils % 59.6 %; Platelet Count 282 10^3/uL (130-400); RBC 4.27 10^6/uL (3.93-5.22); RDW 12.5 % (11.7-14.6); RDW-SD 40.9 fL; WBC 5.05 10^3/uL (4.4-10.8)
[2024-05-05 09:42] LABS: ALT 185 U/L (14-59); AST 93 U/L (15-37); Albumin 3.4 g/dL (3.4-5.0); Alkaline Phosphatase 175 U/L (46-116); Anion Gap 7.8 mmol/L (3-11); BUN 17 mg/dL (7-18); CO2 27.2 mmol/L (21.0-32.0); CREATININE 1.1 mg/dL (0.55-1.02); Calcium 8.9 mg/dL (8.5-10.1); Chloride 106 mmol/L (98-107); Estimated GFR 56.46 (mL/min/1.73m2); Glucose 98 mg/dL (74-106); Potassium 3.9 mmol/L (3.5-5.1); Sodium 141 mmol/L (136-145); Total Protein 6.6 g/dL (6.4-8.2)
[2024-05-05 10:03] LABS: Vitamin D 25 Total 31.6 ng/mL (30-100)
== END 2024-05-05 01:17 | disposition home or self-care (01) ==
PROVIDERS: PCP Student in an Organized Health Care Education/Training Program; Visit Provider Nurse Practitioner Family
DX: E46 Unspecified protein-calorie malnutrition (principal); K90.9 Intestinal malabsorption, unspecified
CPT/HCPCS: 36415; 80053; 82306; 85025

== ENCOUNTER 2024-05-29 03:45 | Outpatient (CLI) | payer BC, SELFPAY ==
[2024-05-29 14:12] LABS: Abs Immature Grans 0.02 10^3/uL (0.0-0.06); Absolute Basophil Count 0.07 10^3/uL (0.0-0.2); Absolute Eosinophil Count 0.11 10^3/uL (0.0-0.7); Absolute Lymphocyte Count 1.65 10^3/uL (1.2-3.4); Absolute Monocyte Count 0.51 10^3/uL (0.1-0.8); Absolute Neutrophil Count 4.08 10^3/uL (1.2-6.7); Basophils % 1.1 %; Eosinophils % 1.7 %; HCT 39.5 % (36.0-46.0); HGB 12.9 g/dL (11.2-15.7); Immature Grans % 0.3 %; Lymphocytes % 25.6 %; MCH 29.7 pg (27.0-33.0); MCHC 32.7 % (32.0-36.0); MCV 91 fL (80-95); MPV 9.9 fL (8.0-11.0); Monocytes % 7.9 %; Neutrophils % 63.4 %; Platelet Count 290 10^3/uL (130-400); RBC 4.35 10^6/uL (3.93-5.22); RDW 12.4 % (11.7-14.6); RDW-SD 41.2 fL; WBC 6.44 10^3/uL (4.4-10.8)
[2024-05-29 17:50] LABS: ALT 42 U/L (14-59); AST 23 U/L (15-37); Albumin 3.5 g/dL (3.4-5.0); Alkaline Phosphatase 105 U/L (46-116); Anion Gap 9.7 mmol/L (3-11); BUN 20 mg/dL (7-18); Bilirubin, Total 0.49 mg/dL (0.2-1.0); CO2 27.3 mmol/L (21.0-32.0); Chloride 105 mmol/L (98-107); Glucose 92 mg/dL (74-106); Potassium 4.1 mmol/L (3.5-5.1); Sodium 142 mmol/L (136-145); Total Protein 6.8 g/dL (6.4-8.2)
== END 2024-05-29 03:46 | disposition home or self-care (01) ==
PROVIDERS: PCP Student in an Organized Health Care Education/Training Program; Visit Provider Nurse Practitioner Family
DX: L93.0 Discoid lupus erythematosus (principal); Z79.899 Other long term (current) drug therapy
CPT/HCPCS: 36415; 80053; 85025

== ENCOUNTER 2024-07-24 01:08 | Outpatient (CLI) | payer BC, SELFPAY ==
--- NOTE | 2024-07-24 07:15 | DI.MAMMO_ITS ---
Exam(s) MAMMO SCREENING EXAM: MAMMO SCREENING CLINICAL HISTORY: screening,z12.39. TECHNIQUE: Bilateral full field digital CC and MLO mammographic images were obtained with 3D tomosyn thesis and utilizing computer aided detection (CAD). COMPARISON: Prior mammograms were reviewed. FINDINGS: No new left breast findings In the inferior aspect of the right breast there is a nodular density measuring 6 x 5 mm located 9 cm in from the nipple on the CC view. Spot compression view and ultrasound recommended Asymmetric tissue seen laterally in the right breast is unchanged from prior mammograms. There is no significant architectural distortion nor skin thickening-retraction. IMPRESSION: 1. No radiographic evidence of malignancy in left breast. 2. Asymmetric density-possible nodule in the right breast. Spot compression MLO view and ultrasound recommended. BI-RADS Category 0 - Incomplete: Need additional imaging evaluation Breast Density - Category C - Heterogeneously dense Breast density Category C or D implies that the patient has dense breast tissue. Dense breast tissue can make it harder to find cancer on a mammogram. Dense breast tissue is also associated with an incr eased risk of breast cancer. This information about the result of the mammogram report was provided to the patient to raise their awareness. Use this report when you speak with the patient about their risks for breast cancer, which includes their family history. At that time, you may recommend additional screening tests (Ultrasoun d or MRI) as these tests may add significant information. A negative radiographic report should not delay biopsy if a dominant or clinically suspicious mass is present. Up to ten percent of cancers are not identified on mammography. A negative report may reinforce clinical impression. Adenosis and dense breasts may obscure an underlying neoplasm. False positive reports average 6 to 10%. Patient will receive a letter notifying them of these results.
== END 2024-07-24 01:28 ==
LOC: DI 01:08
PROVIDERS: PCP Student in an Organized Health Care Education/Training Program; Visit Provider Student in an Organized Health Care Education/Training Program
DX: Z12.31 Encounter for screening mammogram for malignant neoplasm of breast (principal)
CPT/HCPCS: 77063; 77067

== ENCOUNTER 2024-07-26 00:45 | Outpatient (CLI) | payer BC, SELFPAY ==
--- NOTE | 2024-07-26 | DI.US_ITS ---
Exam(s) MG MAMMO SCREEN CALL BACK UNI US BREAST RT COMPLETE EXAM: MG MAMMO SCREEN CALL BACK UNI-RIGHT AND COMPLETE RIGHT BREAST ULTRASOUND CLINICAL HISTORY: F/U MAMMO, RT NODULAR DENSITY, R92.8. TECHNIQUE: Unilateral RIGHT BREAST spot mammographic images obtained with 3D tomosynthesisand utiliz ing computer aided detection (CAD). . Complete RIGHT breast Ultrasound was also performed, including all 4 quadrants, the retroareolar russ on, and the ipsilateral axilla. COMPARISON: Prior mammograms were reviewed. This additional imaging was performed due to findings described on the recent screening mammogram of 07/24/2024. FINDINGS: DIAGNOSTIC MAMMOGRAM: Additional mammographic view performed today is equivocal. We proceeded with ultrasound COMPLETE BREAST ULTRASOUND: Ultrasound performed today reveals no evidence of solid or significant cystic lesions in all 4 quadra nts nor in the retroareolar region.. Scanning of the ipsilateral axilla reveals no significant adenopathy. IMPRESSION: 1. As above. Probable benign findings. Recommend repeat right breast MAMMOGRAM in 6 months. 2. Negative complete right breast ultrasound The patient was informed of these findings and recommendations by myself prior to leaving the departm ent today. BI-RADS Category 3 - 6 month - Probably Benign Finding: Recommend follow-up mammography in 6 months Breast Density - Category C - Heterogeneously dense Breast density Category C or D implies that the patient has dense breast tissue. Dense breast tissue can make it harder to find cancer on a mammogram. Dense breast tissue is also associated with an incr eased risk of breast cancer. This information about the result of the mammogram report was provided to the patient to raise their awareness. Use this report when you speak with the patient about their risks for breast cancer, which includes their family history. At that time, you may recommend additional screening tests (Ultrasoun d or MRI) as these tests may add significant information. A negative radiographic report should not delay biopsy if a dominant or clinically suspicious mass is present. Up to ten percent of cancers are not identified on mammography. A negative report may reinforce clinical impression. Adenosis and dense breasts may obscure an underlying neoplasm. False positive reports average 6 to 10%. Patient will receive a letter notifying them of these results.
== END 2024-07-26 01:05 ==
LOC: DI 00:46
PROVIDERS: PCP Student in an Organized Health Care Education/Training Program; Visit Provider Student in an Organized Health Care Education/Training Program
DX: Z12.31 Encounter for screening mammogram for malignant neoplasm of breast (principal); R92.8 Other abnormal and inconclusive findings on diagnostic imaging of breast
CPT/HCPCS: 76642; 77063; 77067

== ENCOUNTER 2025-05-29 10:29 | Outpatient (CLI) | payer BC, SELFPAY ==
--- NOTE | 2025-05-29 10:15 | RT.EKG_ITS ---
APPROVED REPORT Exam: Resting ECG Reason for Exam: Irregular heart beat Patient Location: O HR:85 bpm ECG Measurements Heart Rate 85 AXIS TX 171 P 58 QRSd 90 QRS 0 QT 346 T 14 QTc 412 Conclusion Sinus rhythm PVCs Otherwise normal
== END 2025-05-29 10:30 | disposition home or self-care (01) ==
LOC: DI.KIM 10:30
PROVIDERS: PCP Nurse Practitioner Family; Visit Provider Nurse Practitioner Family
DX: I49.9 Cardiac arrhythmia, unspecified (principal)
CPT/HCPCS: 93010

== ENCOUNTER 2025-08-06 03:52 | Outpatient (CLI) | payer MEDICARE, OTHER, SELFPAY ==
[2025-08-06 07:37] LABS: Glucose 101 mg/dL (74-106)
[2025-08-06 07:42] LABS: Calculated LDL 115 mg/dL (<100); Cholesterol 214 mg/dL (<200); HDL Cholesterol 90 mg/dL (>or=50); Triglyceride 48 mg/dL (<150)
== END 2025-08-06 03:53 | disposition home or self-care (01) ==
PROVIDERS: PCP Nurse Practitioner Family; Visit Provider Nurse Practitioner Family
DX: Z00.00 Encounter for general adult medical examination without abnormal findings (principal)
CPT/HCPCS: 36415; 80061; 82947

== ENCOUNTER → 2025-09-04 02:14 | Outpatient (CLI) | payer MEDICARE, OTHER, SELFPAY ==
--- NOTE | 2025-09-04 07:30 | DI.MAMMO_ITS ---
Exam(s) MAMMO SCREENING EXAM: MAMMO SCREENING CLINICAL HISTORY: screening,Z12.39. TECHNIQUE: Bilateral full field digital CC and MLO mammographic images were obtained with 3D tomosynthesis and utilizing computer aided detection (CAD). COMPARISON: Prior mammograms were reviewed. FINDINGS: Fibroglandular tissue pattern is again noted to be heterogeneously dense. No new left breast findings In the right breast on CC view there is a suggestion of an asymmetric 11 x 9 mm density-possible nodule located 5 cm in from the nipple on the CC view. Further imaging recommended. Multiple benign-appearing calcifications in both breasts are again noted. There are no new malignant-appearing microcalcification groups There is no significant architectural distortion nor skin thickening-retraction. IMPRESSION: 1. No radiographic evidence of malignancy in left breast. 2. Asymmetric density-possible nodule in the right breast. Spot compression CC view and complete breast ultrasound recommended. BI-RADS Category 0 - Incomplete: Need additional imaging evaluation Breast Density - Category C - The breast are heterogeneously dense, which may obscure small masses. Breast density Category C or D implies that the patient has dense breast tissue. Dense breast tissue can make it harder to find cancer on a mammogram. Dense breast tissue is also associated with an increased risk of breast cancer. This information about the result of the mammogram report was provided to the patient to raise their awareness. Use this report when you speak with the patient about their risks for breast cancer, which includes their family history. At that time, you may recommend additional screening tests (Ultrasound or MRI) as these tests may add significant information. A negative radiographic report should not delay biopsy if a dominant or clinically suspicious mass is present. Up to ten percent of cancers are not identified on mammography. A negative report may reinforce clinical impression. Adenosis and dense breasts may obscure an underlying neoplasm. False positive reports average 6 to 10%. Patient will receive a letter notifying them of these results.
== END ==
LOC: DI 02:15
PROVIDERS: PCP Nurse Practitioner Family; Visit Provider Nurse Practitioner Family
DX: Z12.31 Encounter for screening mammogram for malignant neoplasm of breast (principal); R92.333 Mammographic heterogeneous density, bilateral breasts
CPT/HCPCS: 77063; 77067

== ENCOUNTER → 2025-09-20 00:18 | Outpatient (CLI) | payer MEDICARE, SELFPAY ==
--- NOTE | 2025-09-20 | DI.MAMMO_ITS ---
Exam(s) MG MAMMO SCREEN CALL BACK UNI US BREAST RT COMPLETE EXAM: MG MAMMO SCREEN CALL BACK UNI RIGHT AND COMPLETE RIGHT BREAST ULTRASOUND: CLINICAL HISTORY: ASYMMETRIC DENSITY-POSSIBLE NODULE RT R92.8 ABNL MAMMO. TECHNIQUE: Unilateral RIGHT BREAST spot mammographic images obtained with 3D tomosynthesisand utilizing computer aided detection (CAD). . Complete RIGHT breast Ultrasound was also performed, including all 4 quadrants, the retroareolar region, and the ipsilateral axilla. COMPARISON: Prior mammograms were reviewed. This additional imaging was performed due to findings described on the recent screening mammogram of 09/04/2025. FINDINGS: DIAGNOSTIC MAMMOGRAM: Additional mammographic views performed todayrender this area less concerning and similar in appearance to prior mammograms. COMPLETE RIGHT BREAST ULTRASOUND: Ultrasound performed today reveals no evidence of solid or significant cystic lesions in all 4 quadrants.. Scanning of the ipsilateral axilla reveals no significant adenopathy. IMPRESSION: 1. No radiographic evidence of malignancy in the right breast. 2. Negative complete right breast ultrasound Appropriate follow-up is to keep this patient on her yearly mammogram schedule, with earlier imaging if a self detected breast change is noted. The patient was informed of these findings and recommendations by myself prior to leaving the department today. BI-RADS Category 2 - Benign Findings Breast Density - Category C - The breast are heterogeneously dense, which may obscure small masses. Breast density Category C or D implies that the patient has dense breast tissue. Dense breast tissue can make it harder to find cancer on a mammogram. Dense breast tissue is also associated with an increased risk of breast cancer. This information about the result of the mammogram report was provided to the patient to raise their awareness. Use this report when you speak with the patient about their risks for breast cancer, which includes their family history. At that time, you may recommend additional screening tests (Ultrasound or MRI) as these tests may add significant information. A negative radiographic report should not delay biopsy if a dominant or clinically suspicious mass is present. Up to ten percent of cancers are not identified on mammography. A negative report may reinforce clinical impression. Adenosis and dense breasts may obscure an underlying neoplasm. False positive reports average 6 to 10%. Patient will receive a letter notifying them of these results.
== END ==
LOC: DI 00:18
PROVIDERS: PCP Nurse Practitioner Family; Visit Provider Nurse Practitioner Family
DX: R92.8 Other abnormal and inconclusive findings on diagnostic imaging of breast (principal); Z12.31 Encounter for screening mammogram for malignant neoplasm of breast
CPT/HCPCS: 76642; 77063; 77067